=== PATIENT | male | born 1960 | race Caucasian/White ===

== ENCOUNTER → 2016-12-18 | Outpatient (CLI) | payer OTHER ==
[2016-12-18 13:14] LABS: BASOPHILS # (AUTO) 0.04 10*3/UL; BASOPHILS % (AUTO) 0.5 % (0-1); EOSINOPHILS # (AUTO) 0.06 10*3/UL; EOSINOPHILS % (AUTO) 0.7 % (0-8); HEMOGLOBIN 16.8 g/dL (14.0-18.0); LYMPHOCYTES # (AUTO) 3.34 10*3/uL; MEAN CORPUSCULAR HEMOGLOBIN 32.4 PG (27-31); MEAN CORPUSCULAR HGB CONC 36.5 g/dL (33-37); MEAN CORPUSCULAR VOLUME 88.8 FL (80-90); MEAN PLATELET VOLUME 8.6 FL (7.4-12.2); MONOCYTES # (AUTO) 0.76 10*3/UL (0.3-0.8); MONOCYTES % (AUTO) 8.7 % (5-15); NEUTROPHILS # (AUTO) 4.51 10*3/UL; NEUTROPHILS % (AUTO) 51.6 % (50-80); RED BLOOD COUNT 5.18 10^6/uL (4.70-6.10)
[2016-12-18 13:15] LABS: PLATELET MORPHOLOGY COMMENT NORMAL MORPHOLOGY (NORM); RBC MORPHOLOGY COMMENT NORMAL MORPHOLOGY (NORM); WBC MORPHOLOGY COMMENT NORMAL MORPHOLOGY (NORM)
[2016-12-18 14:06] LABS: BLOOD UREA NITROGEN 11 mg/dL (7-22); BUN/CREATININE RATIO 12.22 (6-20); CALCIUM 10.3 mg/dL (8.7-10.7); EST GLOMERULAR FILTRATION > 60 (>60 ml/min/1.73m(2)); SERUM ALBUMIN 4.8 g/dL (3.5-4.8)
[2016-12-18 14:08] LABS: HEMOGLOBIN A1C 5.23 % (4.2-6.0)
== END ==
LOC: LAB 12:51
PROVIDERS: ATTEND Family Medicine
DX: G62.9 Polyneuropathy, unspecified (principal); E86.0 Dehydration; R51 Headache; R53.83 Other fatigue; K52.9 Noninfective gastroenteritis and colitis, unspecified
CPT/HCPCS: 36415; 80053; 82306; 82607; 83036; 83735; 84100; 84443; 85025